=== PATIENT | male | born 1985 | race Caucasian/White ===

== ENCOUNTER 2019-10-15 13:15 | Emergency (ER) | payer OTHER ==
[~2019-10-15] VITALS: Ht 170.2 cm; Wt 86.4 kg
--- NOTE | 2019-10-15 13:30 | NUR ---
pt came straight from registration. pt was triage in overflow room 20
--- NOTE | 2019-10-15 14:30 | NUR ---
pt is awaitng to see regarding 1799 placement
[2019-10-15 14:35] LABS: BASOPHILS % (AUTO) 0.6 % (0-1); EOSINOPHILS # (AUTO) 0.1 X10'3 (0-0.9); EOSINOPHILS % (AUTO) 1.7 % (0-6); HEMATOCRIT 45.4 % (42.0-52.0); HEMOGLOBIN 15.7 g/dl (14.0-17.9); LYMPHOCYTES # (AUTO) 2.2 X10'3 (1.1-4.8); LYMPHOCYTES % (AUTO) 27.9 % (21-51); MEAN CORPUSCULAR HEMOGLOBIN 32.9 PG (27.0-31.0); MEAN CORPUSCULAR HGB CONC 34.6 g/dL (33.0-36.5); MEAN PLATELET VOLUME 7.7 FL (7.4-10.4); MONOCYTES # (AUTO) 0.5 X10'3 (0-0.9); MONOCYTES % (AUTO) 6.8 % (2-12); PLATELET COUNT 215 X10'3 (140-440); RED BLOOD COUNT 4.78 X10'6 (4.70-6.10)
[2019-10-15 14:50] LABS: ALANINE AMINOTRANSFERASE 41 U/L (12-78); ALBUMIN 4.1 G/DL (3.4-5.0); ALBUMIN/GLOBULIN RATIO 1.2 (1.1-1.5); ALKALINE PHOSPHATASE 46 IU/L (46-116); ANION GAP 9 (8-16); ASPARTATE AMINO TRANSFERASE 25 U/L (10-37); BILIRUBIN,TOTAL 0.3 MG/DL (0.1-1.0); BLOOD UREA NITROGEN 12 MG/DL (7-18); BUN/CREATININE RATIO 14.5 (5.4-32.0); CALCIUM 8.9 MG/DL (8.5-10.1); CHLORIDE 105 MMOL/L (99-107); CREATININE 0.83 MG/DL (0.60-1.10); ETHANOL < 0.010 GM/DL (0.0-0.010); GLUCOSE 93 MG/DL (70-104); POTASSIUM 3.9 MMOL/L (3.5-5.1); SODIUM 139 MMOL/L (135-145); TOTAL CARBON DIOXIDE 25.5 MMOL/L (24-32); TOTAL PROTEIN 7.4 G/DL (6.4-8.2); eGFR > 90 ML/MIN
[2019-10-15 15:01] LABS: URINE AMPHETAMINE SCREEN NEGATIVE (Neg); URINE BARBITUATE SCREEN NEGATIVE (Neg); URINE BENZODIAZEPINES SCREEN NEGATIVE (Neg); URINE CANNABINOID SCREEN NEGATIVE (Neg); URINE COCAINE SCREEN NEGATIVE (Neg); URINE METHADONE SCREEN NEGATIVE (Neg); URINE OPIATE SCREEN NEGATIVE (Neg); URINE PHENCYCLIDINE SCREEN NEGATIVE (Neg)
--- NOTE | 2019-10-15 15:33 | NUR ---
SENT PACKET [facility]
[2019-10-15] MEDS ORDERED: AMIT25TA9 PO (16:00)
[2019-10-15] MEDS ORDERED: BUSP5TAB3 PO (16:04)
[2019-10-15] MEDS ORDERED: DULO20CA50 PO (16:04)
[2019-10-15] MEDS ORDERED: HYDR-3686 PO (16:04)
--- NOTE | 2019-10-15 17:30 | NUR ---
pt is resting. no issues at this time
[2019-10-15] MEDS: busPIRone 15mg tablet PO SCH ×2 (20:00→20:33)
[2019-10-15] MEDS: amitriptyline 25mg tablet PO SCH (20:33)
[2019-10-15] MEDS: hydrOXYzine 25 MG tablet PO PRN (20:38)
--- NOTE | 2019-10-15 20:39 | NUR ---
PATIENT DID NOT TAKE BUSPAR, STATING THAT HE "HASN'T TAKEN IT IN A WHILE" AND THAT HE HAD A "SEVERE REACTION TO IT" WHEN ASKED WHAT THE REACTION WAS PATIENT STATED "SEVER DIZZINESS AND VERTIGO"
--- NOTE | 2019-10-15 21:30 | NUR ---
Patient complaining of headache, spoke with MD, tylenol ordered at this time. Patient sleeping did not require tylenol.
[2019-10-15] MEDS ORDERED: acetaminophen 325mg tablet PO PRN (21:35)
--- NOTE | 2019-10-16 00:30 | NUR ---
Patient continuing to sleep, no needs at this time
--- NOTE | 2019-10-16 02:30 | NUR ---
Patient up to restroom, returned to bed. No needs at this time
--- NOTE | 2019-10-16 05:30 | NUR ---
Patient up to restroom, returned to bed, no other needs at this time
--- NOTE | 2019-10-16 06:00 | NUR ---
pt is sleeping. report received from chey stroud
--- NOTE | 2019-10-16 07:00 | NUR ---
pt is sleeping. no issues at this time. will continue to monitor
[2019-10-16] MEDS: duloxetine 20mg capsule.DR PO SCH (07:56)
--- NOTE | 2019-10-16 08:00 | NUR ---
pt is eating breakfast
--- NOTE | 2019-10-16 09:00 | NUR ---
PT IS USING THE PHONE TO CALL [facility]
[2019-10-16] MEDS ORDERED: ibuprofen tablet 400 MG TABLET PO ONE (09:40)
[2019-10-16] MEDS ORDERED: ibuprofen 200mg tablet PO ONE (09:50)
--- NOTE | 2019-10-16 10:02 | NUR ---
PT GIVEN MEDS FOR HEADACHE. PT IS USING THE PHONE
--- NOTE | 2019-10-16 11:00 | NUR ---
pt is sleeping on his right side. pt is waiting placement
--- NOTE | 2019-10-16 12:00 | NUR ---
pt is resting in his room. pt poss will be going to [facility]
--- NOTE | 2019-10-16 13:39 | NUR ---
[facility] WORKER AT THE BEDSIDE, INTERVIEWING PATIENT.
--- NOTE | 2019-10-16 14:30 | NUR ---
pt is resting in room
--- NOTE | 2019-10-16 15:30 | NUR ---
pt reading in his room. no concerns at this time
--- NOTE | 2019-10-16 16:32 | NUR ---
pt is reading in his bed. no concerns.
--- NOTE | 2019-10-16 17:47 | NUR ---
pt is resting. no issues.
--- NOTE | 2019-10-16 18:06 | NUR ---
pt is talking with [facility]. pt really [facility] when [facility]
--- NOTE | 2019-10-16 18:43 | NUR ---
Recieved report from STEPHANIE Hall. Pt is sitting in bed and cooperative with 1:1 assessment. He states he is no longer feeling suicidal. "I was feeling suicidal yesterday but not today, today I am just sad." "I know the sadness won't just go away. I always get lorraine depressed around this time because of 10/17."
--- NOTE | 2019-10-16 20:29 | NUR ---
Pt used the restoroom, urinated.
[2019-10-16] MEDS ORDERED: Melatonin 3mg tablet PO SCH (21:00)
[2019-10-16] MEDS: amitriptyline 25mg tablet PO SCH (21:05)
[2019-10-16] MEDS: hydrOXYzine 25 MG tablet PO PRN (21:05)
--- NOTE | 2019-10-16 21:17 | NUR ---
Pt is medication compliant. He is taking 9mg of melatonin tonight. Pt given ear plugs as well.
--- NOTE | 2019-10-16 22:00 | NUR ---
PT up to use the bathroom, returns to bed with no issues
--- NOTE | 2019-10-17 00:33 | NUR ---
Pt asleep on back RR 14, even and unlabored.
--- NOTE | 2019-10-17 02:37 | NUR ---
Pt asleep on R side RR 16, no signs of distress observed
--- NOTE | 2019-10-17 02:57 | NUR ---
Pt up to use the restroom. He states his doctor normally prescribes him elavil 25 mg PO "one or two pills depending on how I feel that night." B[facility] Weaver informs pt that the elavil 25mg is a one time HS order and we can't just give "one or two pills" depending on how he is feeling. He states he has dry mouth, pt given juice. Encouraged pt to lay back down, which he does.
--- NOTE | 2019-10-17 04:43 | NUR ---
Pt asleep on back RR 18, even and unlabored.
[2019-10-17 05:59] VITALS: BP 117/64
--- NOTE | 2019-10-17 07:08 | NUR ---
PT AMB TO BATHROOM TO BATHROOM AND BACK TO BED AND IS NOW SLEEPING LAYING ON RIGHT SIDE RR EVEN AND AT 16.
--- NOTE | 2019-10-17 07:28 | NUR ---
PT REQUESTING TO USE PHONE. DIAL PHONE FOR PT.
--- NOTE | 2019-10-17 08:00 | NUR ---
PT HAS ANOTHER NUMBER HE IS REQUESTING THAT WE CALL BUT IT IS A [place] NUMBER AND OUR PHONE IS UNABLE TO CALL IT. A REP FROM IT IS CHECKING IT OUT.
[2019-10-17] MEDS: duloxetine 20mg capsule.DR PO SCH (09:08)
--- NOTE | 2019-10-17 09:34 | NUR ---
[facility] CALLS TO NOTIFY THAT PT HAS BEEN ACCEPTED AT [facility] BUT NEEDS A RAPID COVID COMPLETED FIRST. NOTIFY PROVIDER.
--- NOTE | 2019-10-17 10:21 | NUR ---
PT TESTED FOR A RAPID COVID 19 WITH SWAB BY RN AND TAKEN TO LAB.
[2019-10-17] MEDS ORDERED: ibuprofen tablet 400 MG TABLET PO ONE (10:30)
--- NOTE | 2019-10-17 11:32 | NUR ---
[facility] CLINICIAN AT BEDSIDE TO RE EVAL PT REQUESED BY THE PT.
--- NOTE | 2019-10-17 11:48 | NUR ---
PT WILL BE GOING BACK TO [facility]. THEY WILL BE SENDING SOMEONE TO COME TO GET HIM.
--- NOTE | 2019-10-17 11:59 | NUR ---
PT ON THE PHONE AT BEDSIDE AND ALL HIS BELONGINGS HAVE BEEN RETURNED TO HIM. WILL NOTIFY SECURITY WHEN HE IS READY TO WALK OUT.
--- NOTE | 2019-10-17 12:13 | NUR ---
[facility] REP ARRIVES TO TAKE PT BACK TO [facility].
== END 2019-10-17 12:15 | disposition home or self-care (01) ==
LOC: ER 13:15
DX: R45.851 Suicidal ideations (principal); Z03.818 Encounter for observation for suspected exposure to other biological agents ruled out; F12.90 Cannabis use, unspecified, uncomplicated; Z72.89 Other problems related to lifestyle; Z79.899 Other long term (current) drug therapy
CPT/HCPCS: 36415; 80053; 80305; 80320; 85025; 87635; 99285; C9803; Q0177